=== PATIENT | male | born 1995 | race Two or more races ===

== ENCOUNTER 2021-11-22 12:00 | Emergency (ER) | payer OTHER ==
[2021-11-22 12:24] VITALS: BMI 16.0
[2021-11-22 13:25] LABS: BASO % 0.6 % (0-2.0); EOS % 1.3 % (0-4.5); HEMATOCRIT 41.3 % (35.4-49); HEMOGLOBIN 14.1 GM/dL (11.7-16.9); LYMPH % 30.8 % (8-40); MCHC 34.2 g/dl (32.0-35.9); MEAN CELL VOLUME 93.5 fl (80-96); MEAN PLT VOLUME 8.8 fl (7.5-11.1); NEUT % 60.3 % (42.8-82.8); PLATELET COUNT 289 10^3/uL (134-434); RBC 4.41 M/mm3 (4.00-5.60); RDW 12.1 % (11.9-15.9); WHITE BLOOD COUNT 4.4 K/mm3 (4.0-10.0)
[2021-11-22 13:42] LABS: ACTIVATED PTT 34.1 SECONDS (25.2-36.5); INR 1.06 (0.83-1.09); PROTHROMBIN TIME (PATIENT) 12.2 SEC (9.7-13.0)
[2021-11-22 13:58] LABS: ALBUMIN 4.7 g/dl (3.4-5.0)
[2021-11-22] MEDS ORDERED: ACETAMINOPHEN 1000 MG/100 ML BAG IVPB ONE (13:59)
[2021-11-22] MEDS ORDERED: METOCLOPRAMIDE HCL INJECTION 10 MG/2 ML VIAL IVPB ONE (13:59)
[2021-11-22] MEDS ORDERED: SODIUM CHLORIDE 0.9% 500 ML INFUS.BAG IV ONE (13:59)
[2021-11-22 14:01] LABS: CREATININE 0.8 mg/dL (0.55-1.3)
[2021-11-22] MEDS ORDERED: ACETAMINOPHEN INJECTION 100 ML IVPB ONE (14:16)
[2021-11-22] MEDS ORDERED: METOCLOPRAMIDE HCL INJECTION 10 MG/2 ML VIAL ONE (14:16)
[2021-11-22 14:54] LABS: HIV INTERPRETATION NEGATIVE (NEGATIVE)
[2021-11-22 15:50] VITALS: BP 136/89; PULSE 83; TEMP 98
== END 2021-11-22 15:51 | disposition home or self-care (01) ==
LOC: JER 12:00
PROC: 3E0333Z Introduction of Anti-inflammatory into Peripheral Vein, Percutaneous Approach (ICD-10-PCS; principal; 2021-11-22)
PROC: 3E033GC Introduction of Other Therapeutic Substance into Peripheral Vein, Percutaneous Approach (ICD-10-PCS; 2021-11-22)
DX: R51.9 Headache, unspecified (principal)
CPT/HCPCS: 36415; 70450-TC; 71046-TC-FY; 80053; 85025; 85610; 85730; 86850; 86900; 86901; 87389; 93005; 93010; 99285-25